=== PATIENT | male | born 1985 | race Two or more races ===

== ENCOUNTER → 2020-07-04 | Outpatient (CLI) | payer MEDICAID ==
[~2020-07-04] VITALS: Ht 177.8 cm; Wt 146.5 kg
[~2020-07-04] MED LIST: ESCITALOPRAM OX10 MG ORAL; RISPERDAL1 MG PO; ZYPREXA10 MG ORAL
--- NOTE | 2020-07-04 10:45 | Consultation ---
DATE OF CONSULTATION: 07/04/2020 CONSULTING PHYSICIAN: Mega Mcadams MD. CHIEF COMPLAINT: Diarrhea. HISTORY OF PRESENT ILLNESS: This is a 35-year-old male with history of schizophrenia, on multiple medications, presented with one year of diarrhea. Initially, it was bloody, but now for the last five months has no blood. The patient goes three to four times a day to the bathroom. Denies any new medications. Denies any recent travel. PAST MEDICAL HISTORY: Schizophrenia. PAST SURGICAL HISTORY: None. MEDICATIONS: The patient did not bring his psych medications, but currently on medications for schizophrenia. FAMILY HISTORY: No family history of GI malignancies. SOCIAL HISTORY: The patient drinks socially. Denies any tobacco usage. He had history of cocaine use, the last one was four years ago. ALLERGIES: No known drug allergies. REVIEW OF SYSTEMS: A 10-point review of systems was performed, pertinent positives in HPI. PHYSICAL EXAMINATION: GENERAL: A well-developed male, in no acute distress. HEENT: Normocephalic and atraumatic. Sclerae anicteric. NECK: Supple. No evidence of obvious lymphadenopathy. CARDIOVASCULAR: Regular rate and rhythm. Plus S1-S2. LUNGS: Clear to auscultation bilaterally. ABDOMEN: Positive bowel sounds. Soft and nontender. No rebound. No guarding. No peritoneal sign. EXTREMITIES: No cyanosis, no clubbing, no edema. ASSESSMENT AND PLAN: This is a 35-year-old male with diarrhea. At this time, etiology is unknown. The patient denies any taking milk or milk products recently, so the patient was advised to stop taking any milk or milk product as lactose intolerance. We are going to send celiac panel. We are going to send thyroid studies. We are going to send stool studies including culture and O and P. The patient told to bring back his psych medication next week for evaluation. He is also given Imodium p.r.n. If next week he is still having diarrhea without any diagnosis, we will consider doing colonoscopy. Mega Mcadams M.D. DR: LAUREN JOB#: [id number] CC:
== END | disposition home or self-care (01) ==
LOC: PAN 09:11
DX: R19.7 Diarrhea, unspecified (principal); F20.9 Schizophrenia, unspecified

== ENCOUNTER 2020-08-14 12:59 | Outpatient (CLI) | payer MEDICAID ==
[~2020-08-14 12:59] MED LIST changes: +METRONIDAZOLE500 MG ORAL
--- NOTE | 2020-08-14 13:32 | General Progress Note ---
Assessment/Plan Assessment/Plan: blastocystis stool flagyl RTC prn Subjective ROS Limited/Unobtainable: Yes Allergies: Coded Allergies: No Known Allergies (Unverified , 07/04/20) Objective General Appearance: alert EENT: normal ENT inspection Neck: supple Cardiovascular: normal rate Respiratory/Chest: decreased breath sounds Abdomen: normal bowel sounds, non tender, soft Extremities: non-tender Mega Mcadams MD Aug 14, 2020 13:32
== END 2020-08-14 14:59 | disposition home or self-care (01) ==
LOC: PAN 12:59
DX: A04.8 Other specified bacterial intestinal infections (principal)
CPT/HCPCS: 99212

== ENCOUNTER 2020-10-24 10:07 | Outpatient (CLI) | payer MEDICAID ==
--- NOTE | 2020-10-24 10:16 | General Progress Note ---
Subjective ROS Limited/Unobtainable: No Allergies: Coded Allergies: No Known Allergies (Unverified , 07/04/20) Objective General Appearance: alert EENT: normal ENT inspection Neck: supple Cardiovascular: normal rate Respiratory/Chest: decreased breath sounds Abdomen: normal bowel sounds, non tender, soft Extremities: non-tender Assessment/Plan Assessment/Plan: Assessment/Plan Assessment/Plan: blastocystis stool flagyl avoid dairy product repeat stool o&p after treatment RTC prn Mega Mcadams MD Oct 24, 2020 10:16
== END 2020-10-24 12:07 | disposition home or self-care (01) ==
LOC: PAN 10:07
DX: K62.5 Hemorrhage of anus and rectum (principal); A07.3 Isosporiasis
CPT/HCPCS: 99212

== ENCOUNTER 2021-01-01 13:14 | Outpatient (CLI) | payer MEDICAID ==
--- NOTE | 2021-01-01 13:21 | General Progress Note ---
Subjective ROS Limited/Unobtainable: Yes Allergies: Coded Allergies: No Known Allergies (Unverified , 07/04/20) Objective General Appearance: alert EENT: PERRL/EOMI Neck: supple Cardiovascular: normal rate Respiratory/Chest: chest wall non-tender Abdomen: normal bowel sounds, non tender, soft Extremities: non-tender Assessment/Plan Assessment/Plan: Assessment/Plan Assessment/Plan: blastocystis stool flagyl>>> no response plan Bactrim for 10 days avoid dairy product repeat stool o&p after treatment RTC prn Mega Mcadams MD Jan 01, 2021 13:21
== END 2021-01-01 16:17 | disposition home or self-care (01) ==
LOC: PAN 13:14
DX: R10.9 Unspecified abdominal pain (principal); A07.3 Isosporiasis
CPT/HCPCS: 99212